=== PATIENT | male | born 1950 | race Caucasian/White ===

== ENCOUNTER 2016-04-22 10:25 | Emergency (ER) | payer OTHER ==
[2016-04-22] MEDS ORDERED: Sodium Chloride 0.9% 1,000 ML IV ONE (10:50)
--- NOTE | 2016-04-22 10:53 | C.PDOC ---
History Of Present Illness 65 y/o male presents to the ED for evaluation of right foot pain and swelling for 3 days. He reports history of Gout and states he took his medications at onset of pain, however pain and swelling to toe and foot is worsening. Patient denies injury, chest pain, foot numbness, fever, or other complaints. Time Seen by Provider: 04/22/16 10:36 Chief Complaint (Nursing): Lower Extremity Problem/Injury History Per: Patient History/Exam Limitations: no limitations Onset/Duration Of Symptoms: Days (3), Persistent Current Symptoms Are (Timing): Still Present Recent travel outside of the [place]: No Past Medical History Reviewed: Historical Data, Nursing Documentation, Vital Signs Vital Signs: Last Vital Signs Temp 97.5 F L 04/22/16 13:12 Pulse 73 04/22/16 13:12 Resp 20 04/22/16 13:12 BP 167/95 H 04/22/16 13:12 Pulse Ox 98 04/22/16 13:12 - Medical History PMH: Asthma, Back Problems, HTN, Hypercholesterolemia Other PMH: Gout Surgical History: No Surg Hx - [facility] Procedures INSPECTION OF LARYNX, ENDO (05/30/15) MEASURE CARDIAC SAMPL & PRESSURE, BILATERAL, PERC (05/30/15) PLAIN RADIOGRAPHY OF MULT COR ART USING OTH CONTRAST (05/30/15) PLAIN RADIOGRAPHY OF RIGHT AND LEFT HEART USING OTH CONTRAST (05/30/15) Family History: States: Unknown Family Hx - Social History Hx Tobacco Use: No Hx Alcohol Use: No Hx Substance Use: No - Immunization History Hx Tetanus Toxoid Vaccination: No Hx Influenza Vaccination: No Hx Pneumococcal Vaccination: No Review Of Systems Constitutional: Negative for: Fever Cardiovascular: Negative for: Chest Pain Respiratory: Negative for: Cough, Shortness of Breath Gastrointestinal: Negative for: Nausea, Abdominal Pain Musculoskeletal: Positive for: Foot Pain (and swelling, right foot) Skin: Negative for: Rash, Bruising Neurological: Negative for: Numbness Physical Exam - Physical Exam Appears: Non-toxic, No Acute Distress Skin: Warm, Dry Head: Atraumatic, Normacephalic Eye(s): bilateral: Normal Inspection Neck: Normal ROM, Supple Chest: Symmetrical Cardiovascular: Rhythm Regular Respiratory: Normal Breath Sounds, No Rales, No Rhonchi, No Wheezing Gastrointestinal/Abdominal: Normal Exam, Soft, No Tenderness Extremity: No Calf Tenderness, Other (swelling and tenderness to right great toe ; swelling and erythema spreading to the dorsum of the right foot with tactile warmth) Pulses: Left Dorsalis Pedis: Normal, Right Dorsalis Pedis: Normal Neurological/Psych: Oriented x3, Normal Speech, Normal Motor, Normal Sensation ED Course And Treatment - Laboratory Results Result Diagrams: 04/22/16 10:56 04/22/16 10:56 Lab Interpretation: No Acute Changes ECG: Interpreted By Me ECG Rhythm: Sinus Rhythm ECG Interpretation: No Acute Changes, No Changes From Prior (11/21/15) Rate From EC (bpm) O2 Sat by Pulse Oximetry: 96 (ra) Pulse Ox Interpretation: Normal Medical Decision Making Medical Decision Making: Impression: right foot pain and swelling. History of Gout. Plan: * EKG * Blood Work * Urinalysis * X-Ray, Right Foot * Morphine IVP, Toradol IVP, IV Fluids Progress: Labs and xray reviewed and WNL, no acute findings. No leukocytosis or other abnormality to suggest cellulitis Upon reevaluation, patient reports feeling better the pain has much improved since arrival. Discussed case with Dr Vidal who agrees patient appropriate for discharge and treat for gout flare Advise patient to follow up with Dr Lewis Disposition Counseled Patient/Family Regarding: Diagnosis, Need For Followup, Rx Given - Disposition Referrals: Kelly Lewis MD [Staff Provider] - Disposition: HOME/ ROUTINE Disposition Time: 12:53 Condition: GOOD Additional Instructions: Your labs and xray were normal Please take Indocin for pain and swelling 50mg up to three times per day, with food to not upset stomach May also take Pepcid daily to help with any upset stomach Follow up with your primary doctor Dr Lewis Prescriptions: Indomethacin [Indocin] 50 mg PO TID #45 cap Famotidine [Pepcid] 20 mg PO DAILY #20 tab Instructions: Gout (ED) - POA Present On Arrival: None - Clinical Impression Clinical Impression: Gout flare - PA / CIAIO LUMITE INJECTOR / Resident Statement MD/DO has reviewed & agrees with the documentation as recorded. - Scribe Statement The provider has reviewed the documentation as recorded by the Scribe (Alicia Renteria) All medical record entries made by the Scribe were at my direction and personally dictated by me. I have reviewed the chart and agree that the record accurately reflects my personal performance of the history, physical exam, medical decision making, and the department course for this patient. I have also personally directed, reviewed, and agree with the discharge instructions and disposition.
[2016-04-22] MEDS ORDERED: Sodium Chloride 0.9% 1,000 ML ONE (11:05)
[2016-04-22 11:06] LABS: BASO % 0.6 % (0.0-2.0); EOS # 0.1 K/uL (0.0-0.7); EOS % 1.1 % (0.0-4.0); HEMATOCRIT 45.7 % (35.0-51.0); LYMPH # 1.7 K/uL (1.0-4.3); LYMPH % 20.7 % (20.0-40.0); MEAN CELL VOLUME 90.9 fL (80.0-94.0); MEAN CORPUSCULAR HEMOGLOBIN 31.2 pg (27.0-31.0); MEAN CORPUSCULAR HGB CONC 34.3 g/dL (33.0-37.0); MEAN PLATELET VOLUME 9.1 fL (7.2-11.7); MONO # 1.2 K/uL (0.0-0.8); MONO % 14.2 % (0.0-10.0); NRBC % 0.1 % (0.0-2.0); WHITE BLOOD COUNT 8.2 K/uL (4.8-10.8)
[2016-04-22 11:12] LABS: CHLORIDE 95 mmol/L (98-107); POTASSIUM 4.6 mmol/L (3.6-5.2); SODIUM 140 mmol/L (132-148)
[2016-04-22 11:14] LABS: ALB/GLOB RATIO 1.2 (1.0-2.1); ALKALINE PHOSPHATASE 49 U/L (38-126); AST/SGOT 26 U/L (17-59); BILIRUBIN,TOTAL 0.9 mg/dL (0.2-1.3); BLOOD UREA NITROGEN 23 mg/dL (9-20); CARBON DIOXIDE 30 mmol/L (22-30); GFR AFRICAN-AMERICAN > 60; TOTAL PROTEIN 8.1 g/dL (6.3-8.3)
[2016-04-22 11:15] LABS: ALT/SGPT 23 U/L (21-72); CALCIUM 9.2 mg/dl (8.6-10.4); GLUCOSE,RANDOM 105 mg/dL (75-110); URIC ACID 8.1 mg/dL (3.5-8.5)
[2016-04-22 12:12] LABS: RBC URINE 1 /hpf (0-3); URINE BILIRUBIN NEGATIVE (NEGATIVE); URINE BLOOD NEGATIVE (NEGATIVE); URINE COLOR Yellow (YELLOW); URINE GLUCOSE (UA) NORMAL (Normal); URINE HYALINE CAST 0-2 /lpf (0-2); URINE KETONE NEGATIVE (NEGATIVE); URINE LEUKOCYTE ESTERASE NEG Leu/uL (Negative); URINE PROTEIN NEGATIVE (NEGATIVE); URINE UROBILINOGEN NORMAL mg/dL (0.2-1.0); WBC URINE 5 /hpf (0-5)
[2016-04-22 13:12] VITALS: BP 167/95; PULSE 73; RESP 20; TEMP 97.5
--- NOTE | 2016-04-22 13:26 | RAD ---
PROCEDURE: Right Foot Radiographs. HISTORY: pain and swelling COMPARISON: None. FINDINGS: BONES: Normal. No fracture. JOINTS: Normal. SOFT TISSUES: Normal. OTHER FINDINGS: None. IMPRESSION: Negative study
[2016-04-22 18:03] VITALS: O2SAT 96
--- NOTE | 2016-04-25 09:27 | CARD ---
APPROVED REPORT EKG Measurement Heart [id number] OK [id number] [id number] <Conclusion> Normal sinus rhythm Moderate voltage criteria for LVH, may be normal variant Nonspecific ST and T wave abnormality Abnormal ECG
== END 2016-04-22 13:22 | disposition home or self-care (01) ==
LOC: C.ER 10:25
DX: M10.9 Gout, unspecified (principal)
CPT/HCPCS: 73630; 80053; 81001; 84550; 85025; 93005; 96361; 96374; 96375; 99285; J1885; J2270; J7040

== ENCOUNTER 2017-07-05 16:31 | Emergency (ER) | payer OTHER ==
[2017-07-05 16:48] VITALS: RESP 16; O2SAT 100
--- NOTE | 2017-07-05 18:13 | C.PDOC ---
History Of Present Illness 66 year old male presents to the ED for evaluation of right knee pain which began 4 days ago. Patient reports history of gout and states he normally receives a "shot" from his PMD, Dr. Lewis which helps his symptoms. Admits to eating a poor gout diet. Patient denies falls/injuries or extremity numbness/ weakness. Time Seen by Provider: 07/05/17 17:25 Chief Complaint (Nursing): Lower Extremity Problem/Injury History Per: Patient History/Exam Limitations: no limitations Onset/Duration Of Symptoms: Hrs Current Symptoms Are (Timing): Still Present Additional History Per: Patient - Knee Description Of Injury: denies: Fell Past Medical History Reviewed: Historical Data, Nursing Documentation, Vital Signs Vital Signs: Last Vital Signs Temp 98.5 F 07/05/17 18:27 Pulse 66 07/05/17 18:27 Resp 16 07/05/17 18:27 BP 144/74 07/05/17 18:27 Pulse Ox 100 07/05/17 20:55 - Medical History PMH: Asthma, Back Problems, HTN, Hypercholesterolemia Denies: Chronic Kidney Disease Surgical History: No Surg Hx - [facility] Procedures INSPECTION OF LARYNX, ENDO (05/30/15) MEASURE CARDIAC SAMPL & PRESSURE, BILATERAL, PERC (05/30/15) PLAIN RADIOGRAPHY OF MULT COR ART USING OTH CONTRAST (05/30/15) PLAIN RADIOGRAPHY OF RIGHT AND LEFT HEART USING OTH CONTRAST (05/30/15) Family History: States: Unknown Family Hx - Social History Hx Tobacco Use: No Hx Alcohol Use: No Hx Substance Use: No - Immunization History Hx Tetanus Toxoid Vaccination: No Hx Influenza Vaccination: No Hx Pneumococcal Vaccination: No Review Of Systems Constitutional: Negative for: Fever, Chills Musculoskeletal: Positive for: Other (R knee pain ) Physical Exam - Physical Exam Appears: Non-toxic, No Acute Distress Skin: Normal Color, Warm, Dry Head: Atraumatic, Normacephalic Eye(s): bilateral: Normal Inspection, EOMI Nose: Normal Oral Mucosa: Moist Neck: Normal ROM, Supple Extremity: Normal ROM, No Pedal Edema, No Calf Tenderness, Capillary Refill ( less than 2 seconds ), Other (mild effusion and tenderness to anterior aspect of right knee ) Extremity: Bilateral: Normal Color And Temperature, Normal ROM Pulses: Left Dorsalis Pedis: Normal, Right Dorsalis Pedis: Normal Neurological/Psych: Oriented x3, Normal Speech, Normal Cognition, Normal Sensation Gait: Steady ED Course And Treatment O2 Sat by Pulse Oximetry: 100 (on RA) Pulse Ox Interpretation: Normal Progress Note: Pt was offered XR or PO medication but refused. Requests joint injection. Pt informed to f/u with ortho on 1-2 days for re-evlauation. Case discussed with Dr Salguero, agreed upon plan and treatment. Disposition - Disposition Referrals: Kelly Lewis MD [Staff Provider] - Alexa Hallman MD [Staff Provider] - Disposition: HOME/ ROUTINE Disposition Time: 18:12 Condition: GOOD Additional Instructions: Follow up with your PMD/ bone doctor in 1-2 days. Return to ER if symptoms persist or worsen. Instructions: Gout (DC) Forms: [employer] [employer] (Pashto) - Clinical Impression Clinical Impression: Right knee pain - PA / AMMONIA DISTILLER / Resident Statement MD/DO has reviewed & agrees with the documentation as recorded. - Scribe Statement The provider has reviewed the documentation as recorded by the Scribe (Kathrin Martin) All medical record entries made by the Scribe were at my direction and personally dictated by me. I have reviewed the chart and agree that the record accurately reflects my personal performance of the history, physical exam, medical decision making, and the department course for this patient. I have also personally directed, reviewed, and agree with the discharge instructions and disposition.
[2017-07-05 18:30] VITALS: BP 144/74; PULSE 66; TEMP 98.5
== END 2017-07-05 18:32 | disposition home or self-care (01) ==
LOC: C.ER 16:31
DX: M25.561 Pain in right knee (principal)